=== PATIENT | male | born 2000 | race African-American/Black ===

== ENCOUNTER 2019-05-13 15:45 | Emergency (ER) | payer MEDICAID ==
[2019-05-13 15:52] VITALS: BP 128/77; Wt 102.3 kg
[2019-05-13] MEDS ORDERED: EFFEXOR XR150 MG PO ×2 (15:53→16:54)
[2019-05-13] MEDS ORDERED: VISTARIL50 MG PO (15:53)
[2019-05-13] MEDS ORDERED: SEROQUEL50 MG PO ×2 (15:54→16:54)
[2019-05-13] MEDS ORDERED: VISTARIL25 MG PO (16:52)
[2019-05-13] MEDS ORDERED: PHENERGAN25 M1 PO (16:54)
== END 2019-05-13 17:03 | disposition home or self-care (01) ==
LOC: D.ER 15:45
DX: F41.9 Anxiety disorder, unspecified (principal); Z51.81 Encounter for therapeutic drug level monitoring; R11.0 Nausea; F32.9 Major depressive disorder, single episode, unspecified; K21.9 Gastro-esophageal reflux disease without esophagitis